=== PATIENT | male | born 1985 | race Caucasian/White ===

== ENCOUNTER 2018-01-30 13:05 | Emergency (ER) | payer OTHER ==
[~2018-01-30] VITALS: Ht 167.6 cm; Wt 61.2 kg
--- NOTE | 2018-01-30 13:05 | NUR ---
PT BIBSELF RUQ ABDOMINAL PAIN, SUDDEN ONSET X 2 HOURS, +N/V/D. AAOX4, RESPIRATIONS EVEN AND UNLABORED, NAD NOTED, NAD, AWAITING ER PROVIDER EVAL
[2018-01-30 13:40] LABS: BASOPHILS # (AUTO) 0.1 /CMM (0.0-0.2); BASOPHILS % (AUTO) 0.8 % (0.0-2.0); EOSINOPHILS % (AUTO) 0.4 % (0.0-6.0); HEMATOCRIT 44 % (39-51); HEMOGLOBIN 15.2 g/dL (13.5-17.5); LYMPHOCYTES # (AUTO) 1.7 /CMM (0.8-4.8); LYMPHOCYTES % (AUTO) 16.5 % (20.0-44.0); MEAN CORPUSCULAR HGB CONC 34 g/dl (31.0-36.0); MEAN CORPUSCULAR VOLUME 103 fL (80-96); MONOCYTES # (AUTO) 0.8 /CMM (0.1-1.30); NEUTROPHILS # (AUTO) 7.8 /CMM (1.8-8.9); NEUTROPHILS % (AUTO) 74.3 % (43.0-81.0); PLATELET COUNT (AUTO) 306 /CMM (150-450); RED BLOOD CELL COUNT(AUTO) 4.32 MIL/uL (4.5-6.0); WHITE BLOOD COUNT (AUTO) 10.5 K/uL (4.3-11.0)
--- NOTE | 2018-01-30 13:45 | NUR ---
ASSISTED PT TO RESTROOM FOR URINE SAMPLE, AMB WITH STEADY GAIT
[2018-01-30 13:52] LABS: CALCIUM, SERUM 8.9 mg/dL (8.5-10.1); CREATININE 0.9 mg/dL (0.6-1.3); POTASSIUM 3.7 mmol/L (3.5-5.1)
[2018-01-30 13:56] LABS: BILIRUBIN,DIRECT 0.1 mg/dL (0.0-0.2); BILIRUBIN,TOTAL 0.5 mg/dL (0.2-1.0); TOTAL PROTEIN, SERUM 7.7 g/dL (6.4-8.2)
[2018-01-30 13:58] LABS: APPEARANCE,URINE Clear (CLEAR); BILIRUBIN,URINE Negative (NEGATIVE); BLOOD, URINE Negative Ery/uL (NEGATIVE); COLOR,URINE Yellow (YELLOW); KETONES,URINE Negative (NEGATIVE); LEUKOCYTE ESTERASE ,URINE Negative (NEGATIVE); NITRITE, URINE Negative (NEGATIVE); PROTEIN,URINE Negative (NEGATIVE); UGLUCOSE Negative (NEGATIVE); UROBILINOGEN,URINE 0.2 EU/dL (0.2)
[2018-01-30] MEDS ORDERED: PANTOPRAZOLE 40 MG VIAL ONE (14:16)
[2018-01-30] MEDS ORDERED: CHLORDIAZEPOXIDE HCL 25 MG CAPSULE ONE (14:16)
[2018-01-30] MEDS ORDERED: ONDANSETRON HCL/PF 4 MG/2 ML VIAL ONE (14:16)
[2018-01-30] MEDS ORDERED: LORAZEPAM INJ 2 MG/ML VIAL ONE (14:17)
[2018-01-30] MEDS ORDERED: LORAZEPAM INJ 2 MG/ML VIAL IV ONE (14:30)
[2018-01-30] MEDS ORDERED: PANTOPRAZOLE 40 MG VIAL IV ONE (14:30)
[2018-01-30] MEDS ORDERED: IV NS 0.9% 1,000 ML BAG IV ONE (14:30)
[2018-01-30] MEDS ORDERED: ONDANSETRON HCL/PF 4 MG/2 ML VIAL IVP ONE (14:30)
[2018-01-30] MEDS ORDERED: CHLORDIAZEPOXIDE HCL 25 MG CAPSULE PO ONE ×2 (14:30)
--- NOTE | 2018-01-30 14:33 | NUR ---
BONILLA CAPPS ORDER LIBRIUM 50MG AND 25MG, PER GÉNESIS TO GIVE 50MG AND CANCEL 25MG. MEDS GIVEN ORDERED, AND NON-ADMIN'D 25MG ORDER
--- NOTE | 2018-01-30 15:43 | NUR ---
Patient discharged to home in stable condition. Written and verbal after care instructions given. Patient verbalizes understanding of instruction. IV removed. Catheter intact and site benign. Pressure and 4x4 applied to site. No bleeding noted. Ambulatory with a steady gait. VARUN Nguyen with pt, requested for [employer] tokens, given $6 baker.
[2018-01-30 15:47] VITALS: BP 135/89
--- NOTE | 2018-01-30 15:49 | NUR ---
VARUN received a call from ED requesting for SW to give alcohol treatment resources to the pt. SW met with the pt. bedside. Pt. appears disheveled. Pt. states that he would like to get referrals in the [place] area. Pt. [place] and [place] bus tokens. SW gave pt. $6 for transportation and list of referrals in [facility] such as [employer] , [employer] and several others on the list. No other social service needs are requested at this time. SW is available if needed. VARUN updated pt's LISANDRA Abdul with aforementioned information.
== END 2018-01-30 15:48 | disposition home or self-care (01) ==
LOC: ER 13:13
DX: R10.13 Epigastric pain (principal); K29.20 Alcoholic gastritis without bleeding; F10.10 Alcohol abuse, uncomplicated; G89.29 Other chronic pain; R11.2 Nausea with vomiting, unspecified; D75.89 Other specified diseases of blood and blood-forming organs; R74.0 Nonspecific elevation of levels of transaminase and lactic acid dehydrogenase [LDH]; F31.9 Bipolar disorder, unspecified; F43.10 Post-traumatic stress disorder, unspecified; Y90.9 Presence of alcohol in blood, level not specified; Z88.0 Allergy status to penicillin
CPT/HCPCS: 36415; 76700-TC; 80048-TC; 80076-TC; 81000-TC; 83690-TC; 85025-TC; A4606; C9113; J2060; J2405; J7030; Z7610